=== PATIENT | female | born 1930 | race Asian ===

== ENCOUNTER 2017-12-25 18:08 | Emergency (ER) | payer OTHER ==
[~2017-12-25] VITALS: Ht 152.4 cm; Wt 55.0 kg
[2017-12-25] MEDS ORDERED: APIX5TAB4 PO (18:32)
[2017-12-25] MEDS ORDERED: [UNRECOGNIZED DRUG - OTHER] (18:32)
[2017-12-25] MEDS ORDERED: AMLO5TAB4 PO (18:32)
[2017-12-25] MEDS ORDERED: MECLIZINE 25MG TABLET PO ONE ×2 (18:45→21:15)
[2017-12-25] MEDS ORDERED: SODIUM CHLORIDE 0.9% 500 ML IV ONE (18:45)
[2017-12-25 19:37] LABS: CHLORIDE 103 mEq/L (98-107)
[2017-12-25 19:38] LABS: BASOPHILS % 0.8 % (0.0-2.0); EOSINOPHILS % 1.3 % (0.0-5.0); HEMATOCRIT. 41.3 % (36.0-48.0); LYMPHOCYTES % 28.2 % (20.0-50.0); MEAN CORPUSCULAR HEMOGLOBIN 33.2 pg (28.0-32.0); MEAN PLATELET VOLUME 8.2 fl (7.4-10.4); MONOCYTES % 10.3 % (2.0-8.0); NEUTROPHILS % 59.4 % (40.0-76.0); PLATELET 151 x1000/uL (130-400); RED BLOOD CELL COUNT 4.22 mill/uL (4.2-5.4)
[2017-12-25 19:39] LABS: INR 1.1; PROTHROMBIN TIME 10.9 sec (9.4-11.6)
[2017-12-25] MEDS ORDERED: POTASSIUM CHLORIDE 20MEQ TABLET SR PO ONE (20:30)
[2017-12-25 22:27] VITALS: BP 119/57
== END 2017-12-25 22:30 | disposition home or self-care (01) ==
LOC: ER 18:43
DX: R42 Dizziness and giddiness (principal); R19.7 Diarrhea, unspecified; I10 Essential (primary) hypertension; I48.91 Unspecified atrial fibrillation; Z79.01 Long term (current) use of anticoagulants
CPT/HCPCS: 36415; 70450; 80053; 85025; 85610; 93005; 96360; 96361; 99285; J7040; J8597